=== PATIENT | female | born 1955 | race African-American/Black ===

== ENCOUNTER 2018-04-15 07:19 | Day surgery (SDC) | payer OTHER ==
[2018-04-12 10:27] VITALS: BMI 28.3
--- NOTE | 2018-04-15 06:48 | HP ---
History & Physical Update - History History: No Change - Physical Physical: No Change - Assessment Assessment: No Change - Plan Plan: No Change (Initial H&P is located in her paper chart. Up to date. No new complaints and or medications. Here today for elective repair of her cervical stenosis at C4-C6 resulting in neck pain w/ RUE radiculopathy. Planned procedure is ACDF C4-C6.)
[~2018-04-15 07:19] MED LIST: CEFAZOLIN 2 GM in DEXTROSE 5%-WATER - 100 ML IVPB ONE; GELATIN, ABSORBABLE 100 EACH SPONGE TP ONE; ONDANSETRON 4 MG/2 ML VIAL IVPUSH PRN; THROMBIN (BOVINE) 5,000 UNIT VIAL TP ONE; oxyCODONE HCL 5 MG TABLET PO PRN
[2018-04-15] MEDS ORDERED: SUCCINYLCHOLINE CHLORIDE 200 MG/10 ML VIAL ONE (07:22)
[2018-04-15] MEDS ORDERED: PROPOFOL 20 ML ONE ×10 (07:22→10:36)
[2018-04-15] MEDS ORDERED: LIDOCAINE 1%/EPI 1:100000 (20 ML MULTI DOSE VIAL) ONE (07:23)
[2018-04-15] MEDS ORDERED: LIDOCAINE HCL/PF 2% SDV 5ML VIAL ONE (07:32)
[2018-04-15] MEDS ORDERED: DEXAMETHASONE SOD PHOSPHATE 4 MG/1 ML VIAL ONE ×2 (07:32→09:05)
[2018-04-15] MEDS ORDERED: SODIUM CHLORIDE 0.9% P/F 10 ML VIAL IJ ONE ×2 (07:32→07:50)
[2018-04-15] MEDS ORDERED: ceFAZolin SODIUM 1 GM VIAL ONE (07:32)
[2018-04-15] MEDS: GABAPENTIN 300 MG CAPSULE (FP) PO STA (07:35)
[2018-04-15] MEDS: oxyCODONE HCL 10 MG SUSTAINED ACTING TABLET PO STA (07:35)
[2018-04-15] MEDS ORDERED: KETAMINE HCL 200 MG/20 ML VIAL ONE (07:44)
[2018-04-15] MEDS ORDERED: DEXAMETHASONE SOD PHOSPHATE/PF 10 MG/ML SDV ONE (08:10)
[2018-04-15] MEDS ORDERED: MIDAZOLAM HCL 2 MG/2 ML SINGLE DOSE VIAL ONE (08:11)
[2018-04-15] MEDS ORDERED: BUPIVACAINE HCL/PF (5 MG/ML) 30 ML VIAL IJ ONE (08:11)
[2018-04-15] MEDS ORDERED: PHENYLEPHRINE HCL 10 MG/1 ML SINGLE DOSE VIAL ONE (09:13)
[2018-04-15] MEDS ORDERED: THROMBIN (BOVINE) 5,000 UNIT VIAL TP ONE (09:15)
--- NOTE | 2018-04-15 11:22 | OP ---
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
--- NOTE | 2018-04-15 11:24 | SURG ---
Surgery Leather Parts Matcher Note Leather Parts Matcher: Donnie Moffett PA-C Date of Service: 04/15/18 Diagnosis: C4/5, C5/6 stenosis, myelopathic Procedure: C4/5, C5/6 ACDF, instrumentation, allograft implant, neuromonitoring I was present for the entirety of the operative procedure. For further detail, please refer to operative report. Visit type - Case Type Case Type: Scheduled - New patient This patient is new to me today: Yes Date on this admission: 04/15/18
[2018-04-15] MEDS ORDERED: diazePAM 2 MG TABLET PO PRN (11:26)
[2018-04-15] MEDS ORDERED: diazePAM 2 MG TABLET ONE (12:21)
[2018-04-15] MEDS ORDERED: oxyCODONE HCL 5 MG TABLET ONE (13:34)
[2018-04-15] MEDS: oxyCODONE HCL 5 MG TABLET PO PRN ×3 (13:35→22:19)
[2018-04-15] MEDS ORDERED: PROMETHAZINE HCL 25 MG/1 ML VIAL IVPUSH PRN (14:17)
[2018-04-15] MEDS ORDERED: ONDANSETRON 4 MG/2 ML VIAL IVPUSH PRN (14:17)
[2018-04-15] MEDS: CEFAZOLIN 1 GM/D5W 1 GRAM/50 ML BAG IVPB SCH (16:23)
[2018-04-15] MEDS ORDERED: PATIENT'S OWN MEDICATION (NON-FORMULARY) (Insulin Nph Hum/Reg Insulin Hm [Humulin 70/30 Kw SQ SCH (16:30)
[2018-04-15] MEDS: metFORMIN HCL 500 MG TABLET (FP) PO SCH (16:39)
[2018-04-15] MEDS: INSULIN (NOVOLOG MIX 70/30) 100 UNITS/ML MDV SQ SCH (16:39)
[2018-04-15] MEDS: DEXAMETHASONE SOD PHOSPHATE 4 MG/1 ML VIAL IVPUSH SCH (17:47)
[2018-04-15] MEDS ORDERED: GABAPENTIN 100 MG CAPSULE (FP) PO PRN (22:00)
[2018-04-16] MEDS: CEFAZOLIN 1 GM/D5W 1 GRAM/50 ML BAG IVPB SCH (01:00)
[2018-04-16] MEDS: DEXAMETHASONE SOD PHOSPHATE 4 MG/1 ML VIAL IVPUSH SCH ×2 (01:08→09:29)
[2018-04-16] MEDS: INSULIN (NOVOLOG MIX 70/30) 100 UNITS/ML MDV SQ SCH ×2 (06:35→16:40)
[2018-04-16] MEDS: metFORMIN HCL 500 MG TABLET (FP) PO SCH ×2 (06:37→16:40)
[2018-04-16] MEDS ORDERED: PATIENT'S OWN MEDICATION (NON-FORMULARY) (Insulin Nph Hum/Reg Insulin Hm [Humulin 70/30 Kw SQ SCH (07:00)
--- NOTE | 2018-04-16 08:42 | OP ---
DATE OF OPERATION: 04/15/2018 PREOPERATIVE DIAGNOSIS: Cervical stenosis, C4-5, C5-6. POSTOPERATIVE DIAGNOSIS: Cervical stenosis, C4-5, C5-6. PROCEDURE PERFORMED: 1. Anterior cervical diskectomy with fusion, C4-5. 2. Anterior cervical diskectomy with fusion, C5-6. 3. Placement of instrumentation, C4-C6. SURGEON: Randy Buchanan MD LOGGING ENGINEER: YARED Mcnally ESTIMATED BLOOD LOSS: 50 mL. INTRAVENOUS FLUIDS: By Anesthesia. ANESTHESIA: General/SEP block. COMPLICATIONS: There were none. DISPOSITION: Patient brought to the PACU in stable condition. CLINICAL INDICATION: The patient is a 62-year-old female who has been suffering from pain from her neck down her arm. X-rays and MRI were completed which noted that she had cervical stenosis at C4-6. She had gone through an exhaustive course of treatment for this which included medications, physical therapy, injections. Unfortunately, her pain continued to persist despite all of this. At this point, risks, benefits, and alternatives were discussed, and patient consented to surgery. OPERATIVE NOTE: Patient was brought to the operating room by Anesthesia. After appropriate patient identification was performed, general anesthesia was given. SEP block was also given. Patient was placed supine on the OR bed with the arms tucked in to the side. All areas of bony prominence were well padded at this time. A needle was taped onto her neck to rose off the C4-5 level. X-rays taken to confirm this was correct. Needle was removed. Ten mL of lidocaine with epinephrine was injected into her neck at this time. Her neck was prepped and draped in a sterile manner. At this point, timeout was completed. A 2-inch incision was made on the left side of her neck. Dissection was carried down to the platysma. The platysma was cut in line with the skin incision. Next, an interval between the sternocleidomastoid and strap muscles was developed at this time. Next, interval between the carotid sheath as well as trachea and esophagus was developed. Peanuts were used to elevate off the prevertebral fascia. A needle was placed into the C4-5 disk. X-ray was taken to confirm this was correct. The needle was removed. The [place] pins were placed into the body of C4 and C6. The longus coli muscles were elevated off. Retractor blade was placed in. A knife was used to incise the disks and disks was incised. A [place] was used to elevate the disk off the endplates. Using a series of pituitaries, Kerrisons, and curettes, diskectomy was completed. The cages were measured and placed in. Endplates were decorticated. Screws were placed into the body of C4, C5, and C6. [place] pins were removed. Instrumentation appeared to be in good position. Final tightening was performed. A drain was placed. The platysma was closed with 2-0 Vicryl suture. The skin was closed with 3-0 Monocryl suture. Dermabond was applied. Steri-Strips were applied. Sterile dressing was applied. Patient was placed supine on the OR bed, extubated in the OR, and brought to the PACU in stable condition. RANDY BUCHANAN M.D. /[id number]
[2018-04-16] MEDS: oxyCODONE HCL 10 MG SUSTAINED ACTING TABLET PO STA (08:47)
[2018-04-16] MEDS: GABAPENTIN 300 MG CAPSULE (FP) PO STA (08:47)
[2018-04-16] MEDS: LACTATED RINGERS SOLUTION 1,000 ML IV SCH (08:48)
--- NOTE | 2018-04-16 10:16 | DS ---
"Physical Exam: SUBJECTIVE: Patient seen and examined this am, she states that her right arm pain is improved. No numbness or tingling. No CP or SOB. OOB and ambulating. Voiding. OBJECTIVE: Vital Signs Period Temp Pulse Resp BP Sys/Ling Pulse Ox Last 24 Hr 97.8 F-98.3 F 86-113 18-189 118-165/62-93 94-98 STEPHANE-40ml serosangrenous PHYSICAL EXAM GENERAL: The patient is awake, alert, and fully oriented, in no acute distress. NECK: Trachea midline, supple. Incision c/d/i with steri-strips. No fullness or drainage/blood noted. Stephane removed with tip intact. LUNGS: Breath sounds equal, clear to auscultation bilaterally. HEART: Regular rate and rhythm, mild tachycardic.. EXTREMITIES: 2+ pulses, warm, well-perfused, no edema or calf tenderness to the LE b/l. NEUROLOGICAL: Normal speech, gait steady. Biofuels Product Manager strength equal b/l. 5/5 flexion/ extension of upper ext. Able to passively range her right shoulder above her head(almost able to touch her head) LABS Laboratory Results - last 24 hr 04/15/18 04/15/18 04/15/18 11:36 16:33 22:06 POC Glucometer 169 258 233 04/16/18 06:24 POC Glucometer 243 HOSPITAL COURSE: The patient was admitted to the Med-Surg Unit after an elective repair of their cervical stenosis. Now, s/p anterior cervical fusion and disectomy of C4-5 and C5-6. The day of surgery, the patient ambulated the hallways with assistance. Narcotic and non-narcotic pain management control was achieved with an oral and IV approach. POD #1, the surgical drain was removed fully intact and without incident. An xray was obtained and confirmed hardware placement at C4-5 and C5-6, no fractures or dislocations. Kavita-operative IV ABX were administered. DVT prophylaxis was achieved with SCDs and early ambulation. The patient ambulated with Physical Therapy and no services were recommended upon discharge. Narcotic scripts and or muscle relaxants were checked with [facility] BATTERY CONTAINER TESTER ALUMINUM prior to escibe. The discharge instructions and an oral pain management plan were reviewed with the patient. All questions answered. Above plan discussed with Dr. Buchanan and agreed. Date of Admission:04/15/18 Date of Discharge: 04/16/18 Minutes to complete discharge: 20 <Amber Barry - Last Filed: 04/16/18 10:30> Physical Exam: SUBJECTIVE: Patient seen and examined OBJECTIVE: Vital Signs Period Temp Pulse Resp BP Sys/Ling Pulse Ox Last 24 Hr 97.8 F-98.3 F 87-113 16-19 147-192/79-98 94-98 PHYSICAL EXAM GENERAL: The patient is awake, alert, and fully oriented, in no acute distress. HEAD: Normal with no signs of trauma. EYES: PERRL, extraocular movements intact, sclera anicteric, conjunctiva clear. ENT: Ears normal, nares patent, oropharynx clear without exudates, moist mucous membranes. NECK: Trachea midline, full range of motion, supple. LUNGS: Breath sounds equal, clear to auscultation bilaterally, no wheezes, no crackles, no accessory muscle use. HEART: Regular rate and rhythm, S1, S2 without murmur, rub or gallop. ABDOMEN: Soft, nontender, nondistended, normoactive bowel sounds, no guarding, no rebound, no hepatosplenomegaly, no masses. EXTREMITIES: 2+ pulses, warm, well-perfused, no edema. NEUROLOGICAL: Cranial nerves II through XII grossly intact. Normal speech, gait not observed. PSYCH: Normal mood, normal affect. SKIN: Warm, dry, normal turgor, no rashes or lesions noted. LABS Laboratory Results - last 24 hr 04/15/18 04/15/18 04/16/18 16:33 22:06 06:24 WBC RBC Hgb Hct MCV MCH MCHC RDW Plt Count MPV Absolute Neuts (auto) Neutrophils % Lymphocytes % POC Glucometer 258 233 243 04/16/18 04/16/18 11:39 15:27 WBC 21.0 H RBC 4.59 Hgb 13.5 Hct 41.1 MCV 89.5 MCH 29.3 MCHC 32.8 RDW 13.9 Plt Count 341 MPV 9.1 Absolute Neuts (auto) 18.4 Neutrophils % No Result Required. Lymphocytes % No Result Required. POC Glucometer 267 HOSPITAL COURSE: Date of Admission:04/15/18 Date of Discharge: 04/16/18 Patient seen and examined Agree with above D/C Planning <Randy Buchanan - Last Filed: 04/16/18 16:35> Discharge Summary Reason For Visit: CERVICAL STENOSIS - Home Medications Comprehensive Discharge Medication List: Ambulatory Orders Gabapentin [Neurontin -] 200 mg PO BID PRN 04/12/18 Insulin NPH Hum/Reg Insulin Hm [Humulin 70/30 Kwikpen] 18 unit SQ ACDIN Insulin NPH Hum/Reg Insulin Hm [Humulin 70/30 Kwikpen] 34 unit SQ AM 04/12/18 metFORMIN HCL [Metformin HCl] 500 mg PO BID 04/14/18 <Amber Barry - Last Filed: 04/16/18 10:30> - Home Medications Comprehensive Discharge Medication List: Ambulatory Orders Gabapentin [Neurontin -] 200 mg PO BID PRN 04/12/18 Insulin NPH Hum/Reg Insulin Hm [Humulin 70/30 Kwikpen] 18 unit SQ ACDIN Insulin NPH Hum/Reg Insulin Hm [Humulin 70/30 Kwikpen] 34 unit SQ AM 04/12/18 metFORMIN HCL [Metformin HCl] 500 mg PO BID 04/14/18 traMADol HCL [Ultram] 50 mg PO Q6H PRN #20 tablet MDD 4 04/16/18 <Randy Buchanan - Last Filed: 04/16/18 16:35> Condition: Stable - Instructions Diet, Activity, Other Instructions: Post Operative Instructions - Dr Buchanan Diet: You may resume your regular diet. We recommend eating plenty of fiber rich foods to prevent constipation, which can be caused by taking narcotic pain medications. You may also use a stool softener such as DulcoEase. We recommend drinking plenty of water unless you are on fluid restrictions for another medical condition. If you are a diabetic, make sure to keep your glucose well controlled as elevated glucose levels promote infection. Medications: You may resume your previous medications unless otherwise instructed by your surgeon, primary care doctor or upper cutter. You have been prescribed a Narcotic pain medication. Driving or drinking alcohol is PROHIBITED while taking narcotic pain medication, as is operating any heavy machinery. Activity: No bending and or twisting at the waist. No lifting greater than [address] until seen in the office for your first post-operative visit. You may be a passenger for a short time (20-30 minutes) until you are able to tolerate longer distances. Wound Care: Keep area clean and dry. May remove dressing in two (2) days and replace with clean gauze and occlusive dressing such as a tegaderm. NO BATHS. You may shower starting two (2) days after your surgery. When showering, leave the occlusive(plastic) dressing in place and change if it appears wet. Avoid direct water stream onto your incision. General Recommendations: If sitting, use only a straight back chair to ensure proper support, not to exceed a half hour at a time. Lie only on a firm mattress, no couches or recliner chairs. You may lie on your back or side, but not on your abdomen. * Absolutely no bending, stooping, pushing, lifting or straining. * Avoid housework, especially vacuuming or sweeping. * OK to cook, as long as you are not lifting anything heavier than 5 pounds. * Use proper body mechanics to maintain a neutral spine position. * Increasing pain is a red flag telling you to rest. Call your surgeon or report to the ED if you develop: Fevers over 101.5 Chest pain, trouble breathing, calf pain Drainage from the incision (yellow/green, foul smelling) Follow-up Call surgeon's office to schedule your follow-up appointment in two weeks. Referred to following clinics/specialists for follow-up care: Randy Buchanan MD [facility]/[address], [address] [place] [address] [phone] [facility] BATTERY CONTAINER TESTER ALUMINUM Checked prior to escribe of narcotics for pain management This report was requested by: Donnie Moffett | Reference #: [id number] Disposition: HOME This patient is new to me today: Yes Date on this admission: 04/16/18 Emergency Visit: No Critical Care patient: Yes Total Critical Care Time (in minutes): 30 Critical Care Statement: The care of this patient involved high complexity decision making to prevent further life threatening deterioration of the patient 's condition and/or to evaluate & treat vital organ system(s) failure or risk of failure. - Discharge Referral Referred to [facility] Med P.C.: No <Amber Barry - Last Filed: 04/16/18 10:30>"
[2018-04-16] MEDS ORDERED: traMADol HCL 50 MG TABLET PO PRN (10:29)
--- NOTE | 2018-04-16 15:46 | CONSULT ---
Consultation: REQUESTING PROVIDER: Dr. Moreira CONSULT REQUEST: We have been asked to medically evaluate this patient post- operatively for hypertension. HISTORY OF PRESENT ILLNESS: 62 year-old female with a PMH significant for HTN, CVA (2016), and Type II NIDDM , and diabetic retinopathy s/p bilateral eye laser surgeries. Patient is s/p C4- C5, C5-C6, ACDF, and instrumentation on 04/15/18. Patient's blood pressure was elevated but stable until this afternoon when it became significantly elevated [id number], tachy 100s. Patient's pain has been well-controlled, presently 3/10 at the incision site. She is not orthostatic. Patient has been on decadron 4mg x 3 doses, last dose at 9:00am this morning. Patient was otherwise considered ready for discharge from surgical perspective. Dr. Moreira has requested the patient be transferred to the hositalist service. REVIEW OF SYSTEMS: CONSTITUTIONAL: Absent: fever, chills, diaphoresis, generalized weakness, malaise, loss of appetite, weight change HEENT: Absent: rhinorrhea, nasal congestion, throat pain, throat swelling, difficulty swallowing, mouth swelling, ear pain, eye pain, visual changes CARDIOVASCULAR: Absent: chest pain, syncope, palpitations, irregular heart rate, lightheadedness , peripheral edema RESPIRATORY: Absent: cough, shortness of breath, dyspnea with exertion, orthopnea, wheezing, stridor, hemoptysis GASTROINTESTINAL: Absent: abdominal pain, abdominal distension, nausea, vomiting, diarrhea, constipation, melena, hematochezia GENITOURINARY: Absent: dysuria, frequency, urgency, hesitancy, hematuria, flank pain, genital pain MUSCULOSKELETAL: +Anterior neck incisional pain 310 Absent: myalgia, arthralgia, joint swelling, back pain SKIN: Absent: rash, itching, pallor HEMATOLOGIC/IMMUNOLOGIC: Absent: easy bleeding, easy bruising, lymphadenopathy, frequent infections ENDOCRINE: Absent: unexplained weight gain, unexplained weight loss, heat intolerance, cold intolerance NEUROLOGIC: Absent: headache, focal weakness or paresthesias, dizziness, unsteady gait, seizure, mental status changes, bladder or bowel incontinence PSYCHIATRIC: Absent: anxiety, depression, suicidal or homicidal ideation, hallucinations. PHYSICAL EXAMINATION Vital Signs - 24 hr 04/15/18 04/15/18 04/15/18 16:53 17:54 18:00 Temperature 98.1 F 98.0 F Pulse Rate 87 113 H Respiratory 18 Rate Blood Pressure 147/82 160/89 O2 Sat by Pulse 98 97 Oximetry (%) 04/15/18 04/15/18 04/16/18 19:52 22:00 01:45 Temperature 98.3 F 97.8 F Pulse Rate 110 H 105 H Respiratory 18 19 18 Rate Blood Pressure 160/87 151/79 O2 Sat by Pulse 97 97 94 L Oximetry (%) 04/16/18 04/16/18 04/16/18 06:00 08:20 14:03 Temperature 98.0 F 97.9 F Pulse Rate 102 H 109 H Respiratory 18 16 Rate Blood Pressure 148/82 177/98 H O2 Sat by Pulse 95 95 96 Oximetry (%) 04/16/18 14:46 Temperature 97.9 F Pulse Rate 110 H Respiratory 16 Rate Blood Pressure 180/89 H O2 Sat by Pulse Oximetry (%) GENERAL: Awake, alert, and fully oriented, in no acute distress. NECK: Hard collar removed, anterior neck visualized, dressing c/d/i, no sign of erythema, swelling, fluctauance; normal speaking voice LUNGS: Breath sounds equal, clear to auscultation bilaterally. HEART: Regular rate and rhythm, normal S1 and S2 ABDOMEN: Soft, nontender, not distended UPPER EXTREMITIES: 2+ pulses, warm, well-perfused. No cyanosis. No clubbing. Cap refill <2 seconds. No peripheral edema. LOWER EXTREMITIES: 2+ pulses, warm, well-perfused. No calf tenderness. No peripheral edema. NEUROLOGICAL: Cranial nerves II-XII intact. Normal speech. Current Medications Generic Name Dose Route Start Last Admin Trade Name Freq PRN Reason Stop Dose Admin Diazepam 2 mg 04/15/18 11:26 04/15/18 12:10 Valium - PO 2 mg Q8H PRN Administration MUSCLE SPASMS Diltiazem HCl 30 mg 04/16/18 17:15 04/16/18 17:17 Cardizem - PO 30 mg Q6HPO ISIAH Administration Gabapentin 200 mg 04/15/18 22:00 Neurontin - PO BID PRN PAIN Insulin Aspart 18 units 04/15/18 16:30 04/16/18 16:40 Novolog Mix 70/30 Vial SQ 18 unit ACDIN ISIAH Administration Insulin Aspart 34 units 04/16/18 07:00 04/16/18 06:35 Novolog Mix 70/30 Vial SQ 34 units AM ISIAH Administration Lisinopril 2.5 mg 04/16/18 17:15 04/16/18 17:17 Prinivil PO 2.5 mg DAILY ISIAH Administration Metformin HCl 500 mg 04/15/18 16:30 04/16/18 16:40 Glucophage - PO 500 mg BIDI ISIAH Administration Ondansetron HCl 4 mg 04/15/18 07:19 Zofran Injection IVPUSH Q6H PRN NAUSEA AND/OR VOMITING Tramadol HCl 50 mg 04/16/18 10:29 04/16/18 14:04 Ultram - PO 50 mg Q6H PRN Administration PAIN LEVEL 1-5 ASSESSMENT/PLAN 62 year-old female with a PMH significant for HTN, CVA (2016), and Type II NIDDM , and diabetic retinopathy s/p bilateral eye laser surgeries. Patient is s/p C4- C5, C5-C6, ACDF, and instrumentation on 04/15/18. Patient's blood pressure was elevated but stable until this afternoon when it became significantly elevated [id number], tachy 100s. Patient's pain has been well-controlled, presently 3/10 at the incision site. She is not orthostatic. Patient has been on decadron 4mg x 3 doses, last dose at 9:00am this morning. Dr. Moreira has requested the patient be transferred to the hositalist service. Hypertension --serial readings in 190s with tachycardia --not orthostatic, not in pain --patient denies history of hypertension, but review of paper chart shows h/ o hypertension not on meds --could also be secondary to decadron --responded ECG: Sinus tach @ 102bpm Dispo: We will continue to follow the patient. Thank you for this consultative opportunity.
[2018-04-16] MEDS ORDERED: METOPROLOL TARTRATE 5 MG/5 ML VIAL IVPUSH ONE (16:16)
[2018-04-16 16:25] LABS: HEMATOCRIT 41.1 % (32.4-45.2); HEMOGLOBIN 13.5 GM/dl (10.7-15.3); MCH 29.3 pg (25.7-33.7); MCHC 32.8 g/dl (32.0-36.0); MEAN CELL VOLUME 89.5 fl (80-96); MEAN PLT VOLUME 9.1 fl (7.5-11.1); PLATELET COUNT 341 K/MM3 (134-434); RBC 4.59 M/mm3 (3.60-5.2); RDW 13.9 % (11.6-15.6)
--- NOTE | 2018-04-16 16:25 | PN ---
Progress Note (short form) - Note Progress Note: S: Pt resting comfortably in bed. No c/0 O: VAS 3/10 A/p: POD#1 ACDF C4-5 1. Continue pain meds as ordered
[2018-04-16 16:51] LABS: ANION GAP 10 MMOL/L (8-16); BLOOD UREA NITROGEN 24 mg/dl (7-18); CALCIUM 9.4 mg/dl (8.5-10); CHLORIDE 100 mmol/L (98-107); CO2 25 mmol/L (21-32); CREATININE 0.9 mg/dl (0.55-1.3); SODIUM 135 mmol/L (136-145)
[2018-04-16 16:56] LABS: GLUCOSE,RANDOM 318 mg/dl (74-106)
[2018-04-16] MEDS ORDERED: LISINOPRIL 5 MG TABLET (FP) PO SCH ×2 (17:15)
[2018-04-16] MEDS: dilTIAZem HCL 30 MG TABLET (FP) PO SCH ×2 (17:17→18:01)
--- NOTE | 2018-04-16 17:47 | PN ---
Progress Note (short form) - Note Progress Note: We have been asked by Dr. Moreira to medically evaluate this patient post- operatively for hypertension and to accept transfer of this patient to the hospitalist service. HISTORY OF PRESENT ILLNESS: 62 year-old female with a PMH significant for HTN, CVA (2016), Type II NIDDM, and diabetic retinopathy s/p bilateral eye laser surgeries. Patient is s/p C4-C5 , C5-C6, ACDF and instrumentation on 04/15/18. Patient's blood pressure during the perioperative period was elevated but stable until this afternoon when it became significantly elevated, [id number], tachy 100s. Patient's pain has been well -controlled, presently 3/10 at the incision site. She is not orthostatic. Patient has been on decadron 4mg x 3 doses, last dose at 9:00am this morning. Patient was otherwise considered ready for discharge from surgical perspective. REVIEW OF SYSTEMS: CONSTITUTIONAL: Absent: fever, chills, diaphoresis, generalized weakness, malaise, loss of appetite, weight change HEENT: Absent: rhinorrhea, nasal congestion, throat pain, throat swelling, difficulty swallowing, mouth swelling, ear pain, eye pain, visual changes CARDIOVASCULAR: Absent: chest pain, syncope, palpitations, irregular heart rate, lightheadedness , peripheral edema RESPIRATORY: Absent: cough, shortness of breath, dyspnea with exertion, orthopnea, wheezing, stridor, hemoptysis GASTROINTESTINAL: Absent: abdominal pain, abdominal distension, nausea, vomiting, diarrhea, constipation, melena, hematochezia GENITOURINARY: Absent: dysuria, frequency, urgency, hesitancy, hematuria, flank pain, genital pain MUSCULOSKELETAL: +Anterior neck incisional pain 3/10 Absent: myalgia, arthralgia, joint swelling, back pain SKIN: Absent: rash, itching, pallor HEMATOLOGIC/IMMUNOLOGIC: Absent: easy bleeding, easy bruising, lymphadenopathy, frequent infections ENDOCRINE: Absent: unexplained weight gain, unexplained weight loss, heat intolerance, cold intolerance NEUROLOGIC: Absent: headache, focal weakness or paresthesias, dizziness, unsteady gait, seizure, mental status changes, bladder or bowel incontinence PSYCHIATRIC: Absent: anxiety, depression, suicidal or homicidal ideation, hallucinations. PHYSICAL EXAMINATION Vital Signs - 24 hr 04/15/18 04/15/18 04/15/18 16:53 17:54 18:00 Temperature 98.1 F 98.0 F Pulse Rate 87 113 H Respiratory 18 Rate Blood Pressure 147/82 160/89 O2 Sat by Pulse 98 97 Oximetry (%) 04/15/18 04/15/18 04/16/18 19:52 22:00 01:45 Temperature 98.3 F 97.8 F Pulse Rate 110 H 105 H Respiratory 18 19 18 Rate Blood Pressure 160/87 151/79 O2 Sat by Pulse 97 97 94 L Oximetry (%) 04/16/18 04/16/18 04/16/18 06:00 08:20 14:03 Temperature 98.0 F 97.9 F Pulse Rate 102 H 109 H Respiratory 18 16 Rate Blood Pressure 148/82 177/98 H O2 Sat by Pulse 95 95 96 Oximetry (%) 04/16/18 14:46 Temperature 97.9 F Pulse Rate 110 H Respiratory 16 Rate Blood Pressure 180/89 H O2 Sat by Pulse Oximetry (%) GENERAL: Awake, alert, and fully oriented, in no acute distress. NECK: Hard collar removed, anterior neck visualized, dressing c/d/i, no sign of erythema, swelling, fluctauance; normal speaking voice LUNGS: Breath sounds equal, clear to auscultation bilaterally. HEART: Regular rate and rhythm, normal S1 and S2 ABDOMEN: Soft, nontender, not distended UPPER EXTREMITIES: 2+ pulses, warm, well-perfused. No cyanosis. No clubbing. Cap refill <2 seconds. No peripheral edema. LOWER EXTREMITIES: 2+ pulses, warm, well-perfused. No calf tenderness. No peripheral edema. NEUROLOGICAL: Cranial nerves II-XII intact. Normal speech. Current Medications Generic Name Dose Route Start Last Admin Trade Name Freq PRN Reason Stop Dose Admin Diazepam 2 mg 04/15/18 11:26 04/15/18 12:10 Valium - PO 2 mg Q8H PRN Administration MUSCLE SPASMS Diltiazem HCl 30 mg 04/16/18 17:15 04/16/18 17:17 Cardizem - PO 30 mg Q6HPO ISIAH Administration Gabapentin 200 mg 04/15/18 22:00 Neurontin - PO BID PRN PAIN Insulin Aspart 18 units 04/15/18 16:30 04/16/18 16:40 Novolog Mix 70/30 Vial SQ 18 unit ACDIN ISIAH Administration Insulin Aspart 34 units 04/16/18 07:00 04/16/18 06:35 Novolog Mix 70/30 Vial SQ 34 units AM ISIAH Administration Lisinopril 2.5 mg 04/16/18 17:15 04/16/18 17:17 Prinivil PO 2.5 mg DAILY ISIAH Administration Metformin HCl 500 mg 04/15/18 16:30 04/16/18 16:40 Glucophage - PO 500 mg BIDI ISIAH Administration Ondansetron HCl 4 mg 04/15/18 07:19 Zofran Injection IVPUSH Q6H PRN NAUSEA AND/OR VOMITING Tramadol HCl 50 mg 04/16/18 10:29 04/16/18 14:04 Ultram - PO 50 mg Q6H PRN Administration PAIN LEVEL 1-5 ASSESSMENT/PLAN 62 year-old female with a PMH significant for HTN, CVA (2015), Type II NIDDM, and diabetic retinopathy s/p bilateral eye laser surgeries. Patient is s/p C4-C5 , C5-C6, ACDF, and instrumentation on 04/15/18. Patient's blood pressure was elevated but stable during the perioperative period until this afternoon when it became significantly elevated [id number], tachy 100s. Dr. Moreira has requested the patient be transferred to the hositalist service. Hypertension h/o CVA --serial readings in 190s with tachycardia; ECG: Sinus tach @ 102 bpm --not orthostatic, pain is well-controlled, no headache, dizziness, no cardiac symptoms --patient denies history of hypertension, but review of paper chart from [facility] states h/o hypertension not on meds --could also be secondary to decadron, WBC 21k --responded to lopressor 5mg x 1, improved to 164/74 --start cardizem 30mg QID and lisinopril 2.5mg --telemetry monitoring --vitals q4h Type II NIDDM --continue Novolog 70/30, metformin FEN Fluids: PO intake adequate Electrolytes: replete as indicated Nutrition: low sodium, diabetic, soft Dispo: We will continue to follow the patient. Full code. Visit type - Emergency Visit Emergency Visit: No - New Patient This patient is new to me today: Yes Date on this admission: 04/16/18 - Critical Care Critical Care patient: No
[2018-04-16] MEDS ORDERED: dilTIAZem HCL 30 MG TABLET (FP) PO SCH (18:00)
[2018-04-16 19:35] LABS: PLATELET ESTIMATE ADEQUATE
[2018-04-17] MEDS: dilTIAZem HCL 30 MG TABLET (FP) PO SCH ×3 (00:30→11:29)
[2018-04-17] MEDS: INSULIN (NOVOLOG MIX 70/30) 100 UNITS/ML MDV SQ SCH (06:48)
[2018-04-17] MEDS: metFORMIN HCL 500 MG TABLET (FP) PO SCH (06:48)
[2018-04-17] MEDS ORDERED: LISINOPRIL 5 MG TABLET (FP) PO ONE (09:20)
[2018-04-17 11:26] LABS: HEMATOCRIT 40.7 % (32.4-45.2); HEMOGLOBIN 12.9 GM/dl (10.7-15.3); MCH 28.4 pg (25.7-33.7); MCHC 31.8 g/dl (32.0-36.0); MEAN CELL VOLUME 89.3 fl (80-96); MEAN PLT VOLUME 8.4 fl (7.5-11.1); PLATELET COUNT 340 K/MM3 (134-434); RBC 4.56 M/mm3 (3.60-5.2); RDW 13.7 % (11.6-15.6); WHITE BLOOD COUNT 18.1 K/mm3 (4.0-10.8)
[2018-04-17 11:53] LABS: ALBUMIN 2.9 g/dl (3.4-5.0); ALK PHOS 93 U/L (45-117); ANION GAP 9 MMOL/L (8-16); BILIRUBIN,TOTAL 0.5 mg/dl (0.2-1); BLOOD UREA NITROGEN 22 mg/dl (7-18); CALCIUM 9.1 mg/dl (8.5-10); CHLORIDE 102 mmol/L (98-107); CO2 27 mmol/L (21-32); CREATININE 0.7 mg/dl (0.55-1.3); GLUCOSE,RANDOM 150 mg/dl (74-106); POTASSIUM 3.6 mmol/L (3.5-5.1); SGOT/AST 24 U/L (15-37); SGPT/ALT 22 U/L (13-61); SODIUM 138 mmol/L (136-145); TOT PROT 6.6 g/dl (6.4-8.2)
[2018-04-17 12:31] LABS: PLATELET ESTIMATE ADEQUATE
[2018-04-17 14:10] VITALS: BP 140/52; PULSE 88; TEMP 98.3
--- NOTE | 2018-04-17 14:10 | DS ---
"Physical Exam: SUBJECTIVE: Patient seen and examined, pt seen at bedside, denies headache, dizziness, chest pain, sob. has pain, but not as bad as yesterday. pt started on cardizem 30mg q 6hrs, lisinopril 2.5 mg for HTN. pt was not medication prior to admission. BP has come down. this afternoon 140/57, P: 88. Lisinopril increased to 5mg today, Cardizem 120mg XL to start at home. pt is medically stable for discharge today. OBJECTIVE: Vital Signs Period Temp Pulse Resp BP Sys/Ling Pulse Ox Last 24 Hr 97.7 F-98.6 F 86-110 16-20 152-192/58-98 95-97 PHYSICAL EXAM GENERAL: The patient is awake, alert, and fully oriented, in no acute distress. HEAD: Normal with no signs of trauma. EYES: PERRL, extraocular movements intact, sclera anicteric, conjunctiva clear. ENT: Ears normal, nares patent, oropharynx clear without exudates, moist mucous membranes. NECK: Trachea midline, full range of motion, supple. LUNGS: Breath sounds equal, clear to auscultation bilaterally, no wheezes, no crackles, no accessory muscle use. HEART: Regular rate and rhythm, S1, S2 without murmur, rub or gallop. ABDOMEN: Soft, nontender, nondistended, normoactive bowel sounds, no guarding, no rebound, no hepatosplenomegaly, no masses. EXTREMITIES: 2+ pulses, warm, well-perfused, no edema. NEUROLOGICAL: Cranial nerves II through XII grossly intact. Normal speech, gait not observed. PSYCH: Normal mood, normal affect. SKIN: Warm, dry, normal turgor, no rashes or lesions noted. LABS Laboratory Results - last 24 hr 04/16/18 04/16/18 04/16/18 15:27 15:27 15:27 WBC 21.0 H RBC 4.59 Hgb 13.5 Hct 41.1 MCV 89.5 MCH 29.3 MCHC 32.8 RDW 13.9 Plt Count 341 MPV 9.1 Absolute Neuts (auto) 18.4 Neutrophils % No Result Required. Neutrophils % (Manual) 93.0 H* Band Neutrophils % 1.0 Lymphocytes % No Result Required. Lymphocytes % (Manual) 5.0 L Monocytes % (Manual) 1 L Platelet Estimate Adequate Platelet Comment Few large platelets Sodium 135 L Potassium 4.0 Chloride 100 Carbon Dioxide 25 Anion Gap 10 BUN 24 H Creatinine 0.9 Creat Clearance w eGFR > 60 POC Glucometer Random Glucose 318 H* Hemoglobin A1c % 8.6 H Calcium 9.4 Total Bilirubin AST ALT Alkaline Phosphatase Total Protein Albumin 04/16/18 04/16/18 04/17/18 16:38 21:18 06:44 WBC RBC Hgb Hct MCV MCH MCHC RDW Plt Count MPV Absolute Neuts (auto) Neutrophils % Neutrophils % (Manual) Band Neutrophils % Lymphocytes % Lymphocytes % (Manual) Monocytes % (Manual) Platelet Estimate Platelet Comment Sodium Potassium Chloride Carbon Dioxide Anion Gap BUN Creatinine Creat Clearance w eGFR POC Glucometer 265 260 213 Random Glucose Hemoglobin A1c % Calcium Total Bilirubin AST ALT Alkaline Phosphatase Total Protein Albumin 04/17/18 04/17/18 04/17/18 11:08 11:08 11:40 WBC 18.1 H RBC 4.56 Hgb 12.9 Hct 40.7 MCV 89.3 MCH 28.4 MCHC 31.8 L RDW 13.7 Plt Count 340 MPV 8.4 Absolute Neuts (auto) 14.6 Neutrophils % No Result Required. Neutrophils % (Manual) 81.0 Band Neutrophils % Lymphocytes % No Result Required. Lymphocytes % (Manual) 12.0 Monocytes % (Manual) 7 Platelet Estimate Adequate Platelet Comment Sodium 138 Potassium 3.6 Chloride 102 Carbon Dioxide 27 Anion Gap 9 BUN 22 H Creatinine 0.7 Creat Clearance w eGFR > 60 POC Glucometer 137 Random Glucose 150 H Hemoglobin A1c % Calcium 9.1 Total Bilirubin 0.5 AST 24 ALT 22 Alkaline Phosphatase 93 Total Protein 6.6 Albumin 2.9 L HOSPITAL COURSE: Date of Admission:04/15/18 Date of Discharge: 04/17/18 62 year-old female with a PMH significant for HTN, CVA (2016), Type II NIDDM, and diabetic retinopathy s/p bilateral eye laser surgeries. Patient is s/p C4-C5 , C5-C6, ACDF, and instrumentation on 04/15/18. Patient's blood pressure was elevated but stable during the perioperative period postop BP became significantly elevated [id number], tachy 100s. Dr. Moreira requested patient be transferred to the hospitalist service. patient discharged from Surgery, pt to follow up with Dr. Moreira, Tramadol sent to pharmacy yesterday by Sx. Cardizem and Lisinopril sent today. Discharge instructions explained to daughter, pt has a blood pressure machine at home, advised to check BP before taking meds in the morning, and keep log of BP. Advised to follow up with PCP within 24-48. Hypertension- h/o CVA --not orthostatic, pain is well-controlled, no headache, dizziness, no cardiac symptoms --patient denies history of hypertension, but review of paper chart from PCP states h/o hypertension not on meds --could also be secondary to decadron, WBC 21k--> today 18K --start cardizem 30mg QID and lisinopril 2.5mg--> changed to cardizem 120 MG XL, Lisinopril 5mg. Type II NIDDM --continue Novolog 70/30, metformin Minutes to complete discharge: 30 Discharge Summary Reason For Visit: CERVICAL STENOSIS - Instructions Diet, Activity, Other Instructions: Post Operative Instructions - Dr Buchanan Diet: You may resume your regular diet. We recommend eating plenty of fiber rich foods to prevent constipation, which can be caused by taking narcotic pain medications. You may also use a stool softener such as DulcoEase. We recommend drinking plenty of water unless you are on fluid restrictions for another medical condition. If you are a diabetic, make sure to keep your glucose well controlled as elevated glucose levels promote infection. Medications: You may resume your previous medications unless otherwise instructed by your surgeon, primary care doctor or material reclaimer. You have been prescribed a Narcotic pain medication. Driving or drinking alcohol is PROHIBITED while taking narcotic pain medication, as is operating any heavy machinery. Activity: No bending and or twisting at the waist. No lifting greater than [address] until seen in the office for your first post-operative visit. You may be a passenger for a short time (20-30 minutes) until you are able to tolerate longer distances. Wound Care: Keep area clean and dry. May remove dressing in two (2) days and replace with clean gauze and occlusive dressing such as a tegaderm. NO BATHS. You may shower starting two (2) days after your surgery. When showering, leave the occlusive(plastic) dressing in place and change if it appears wet. Avoid direct water stream onto your incision. General Recommendations: If sitting, use only a straight back chair to ensure proper support, not to exceed a half hour at a time. Lie only on a firm mattress, no couches or recliner chairs. You may lie on your back or side, but not on your abdomen. * Absolutely no bending, stooping, pushing, lifting or straining. * Avoid housework, especially vacuuming or sweeping. * OK to cook, as long as you are not lifting anything heavier than 5 pounds. * Use proper body mechanics to maintain a neutral spine position. * Increasing pain is a red flag telling you to rest. Call your surgeon or report to the ED if you develop: Fevers over 101.5 Chest pain, trouble breathing, calf pain Drainage from the incision (yellow/green, foul smelling) Follow-up Call surgeon's office to schedule your follow-up appointment in two weeks. Referred to following clinics/specialists for follow-up care: Randy Buchanan MD [facility]/[address], [place] [address] [phone] [facility] Checked prior to escribe of narcotics for pain management This report was requested by: Donnie Moffett | Reference #: [id number] CHECK YOUR BLOOD PRESSURE IN THE MORNING BEFORE TAKING MEDICATION THURSDAY TAKE CARDIZEM 120MG XL IN THE MORNING RECHECK BP IN THE AFTERNOON IF >130/80 CAN TAKE LISINOPRIL 5MG IN THE AFTERNOON IF BP IS < 110/60, HOLD TAKING MEDICATION, - Home Medications Comprehensive Discharge Medication List: Ambulatory Orders Gabapentin [Neurontin -] 200 mg PO BID PRN 04/12/18 Insulin NPH Hum/Reg Insulin Hm [Humulin 70/30 Kwikpen] 18 unit SQ ACDIN Insulin NPH Hum/Reg Insulin Hm [Humulin 70/30 Kwikpen] 34 unit SQ AM 04/12/18 metFORMIN HCL [Metformin HCl] 500 mg PO BID 04/14/18 traMADol HCL [Ultram] 50 mg PO Q6H PRN #20 tablet MDD 4 04/16/18 Diltiazem Cd [Cardizem Cd -] 120 mg PO DAILY #30 cap.cd.24h 04/17/18 Lisinopril [Prinivil] 5 mg PO DAILY #30 tablet 04/17/18 This patient is new to me today: Yes Date on this admission: 04/17/18 Emergency Visit: Yes Care time: The patient presented to the Emergency Department on the above date and was hospitalized for further evaluation of their emergent condition. Critical Care patient: No - Discharge Referral Referred to [facility] Med P.C.: No"
[2018-04-18] MEDS ORDERED: LISINOPRIL 5 MG TABLET (FP) PO SCH (10:00)
--- NOTE | 2018-04-19 07:21 | PN ---
Progress Note (short form) - Note Progress Note: SUBJECTIVE: Patient seen and examined this am, she states that her right arm pain is improved. No numbness or tingling. No CP or SOB. OOB and ambulating. Voiding. OBJECTIVE: Vital Signs Period Temp Pulse Resp BP Sys/Ling Pulse Ox Last 24 Hr 97.8 F-98.3 F 86-113 18-189 118-165/62-93 94-98 ANAHI-40ml serosangrenous PHYSICAL EXAM GENERAL: The patient is awake, alert, and fully oriented, in no acute distress. NECK: Trachea midline, supple. Incision c/d/i with steri-strips. No fullness or drainage/blood noted. Anahi removed with tip intact. LUNGS: Breath sounds equal, clear to auscultation bilaterally. HEART: Regular rate and rhythm, mild tachycardic.. EXTREMITIES: 2+ pulses, warm, well-perfused, no edema or calf tenderness to the LE b/l. NEUROLOGICAL: Normal speech, gait steady. Car Sales Representative strength equal b/l. 5/5 flexion/ extension of upper ext. Able to passively range her right shoulder above her head(almost able to touch her head) LABS Laboratory Results - last 24 hr 04/15/18 04/15/18 04/15/18 11:36 16:33 22:06 POC Glucometer 169 258 233 04/16/18 06:24 POC Glucometer 243 A/P: 62 yo female s/p C4-5 and C5-6 anterior cervcial fusicion/disectomy The patient was found to have an increase in her tachcardia, a medical consult was obtained and the patient was transferred to the medical service and discharged the following day. D/w Dr. Buchanan
--- NOTE | 2018-04-19 11:08 | EKG ---
Test Reason : Blood Pressure : / mmHG Vent. Rate : 102 BPM Atrial Rate : 102 BPM P-R Int : 134 ms QRS Dur : 078 ms QT Int : 348 ms P-R-T Axes : 052 012 036 degrees QTc Int : 453 ms SINUS TACHYCARDIA POSSIBLE LEFT ATRIAL ENLARGEMENT BORDERLINE ECG NO PREVIOUS ECGS AVAILABLE Confirmed by NICOLÁS LIGHT, ZAINAB ([id number]) on 04/19/2018 11:07:28 AM Referred By: Randy Buchanan Confirmed By:ZAINAB MONZON MD
--- NOTE | 2018-04-19 12:40 | PATH ---
Surgical Pathology Report Patient Name: SUZY LESLIE Med. Rec. #: [id number] /Age/Gender: 1955 (Age: 62) / F Account: <[id number]> Location: [facility] MED-SURG Taken: 04/15/2018 Received: 04/15/2018 Reported: 04/19/2018 Physicians: Randy Buchanan M.D. Specimen(s) Received DISC C4-5/C5-6 Clinical History Cervical stenosis Final Diagnosis DISC, C4-5, C5-6, EXCISION: CARTILAGE WITH DEGENERATIVE CHANGES. Electronically Signed Rena Dupont M.D. Gross Description Received in formalin labeled "disc C4-5, C5-6," is a 3.5 x 2.5 x 0.4 cm aggregate of hall fragments of fibrocartilaginous tissue. A specialty sales representative portion is submitted in one cassette. /04/16/201804/16/2018
== END 2018-04-17 17:30 | disposition home or self-care (01) ==
LOC: FM/S 07:19 → FASUSAT 07:19 → FM/S 04-17 08:00 → FASUSAT 04-17 17:30
PROVIDERS: ATTEND Orthopaedic Surgery Orthopaedic Surgery of the Spine
PROC: 0RG10A0 Fusion of Cervical Vertebral Joint with Interbody Fusion Device, Anterior Approach, Anterior Column, Open Approach (ICD-10-PCS; 2018-04-15)
PROC: 0RG10K0 Fusion of Cervical Vertebral Joint with Nonautologous Tissue Substitute, Anterior Approach, Anterior Column, Open Approach (ICD-10-PCS; 2018-04-15)
PROC: 0RB30ZZ Excision of Cervical Vertebral Disc, Open Approach (ICD-10-PCS; principal; 2018-04-15 09:23)
DX: M48.02 Spinal stenosis, cervical region (principal)
CPT/HCPCS: 22551; 22552; 22845; 22853; C1889; 36415; 72050-TC-FY; 80048; 80053; 82962; 83036; 85025; 88304-TC; 93005; 94760; 97116-GP; 97162-GP